=== PATIENT | male | born 1995 | race Hispanic/Latino ===

== ENCOUNTER 2016-07-04 17:46 | Emergency (ER) | payer OTHER ==
[~2016-07-04] VITALS: Ht 167.6 cm; Wt 85.1 kg
[2016-07-04 17:50] VITALS: BP 145/89; PULSE 107; RESP 16; O2SAT 96
--- NOTE | 2016-07-04 19:42 | ED.REPORT ---
HPI-URI / Cough / Cold Date of Service Jul 04, 2016 ED Provider: Tae Kevin DO A 21 year old male with no pertinent medical history presents to the ED complaining of a cough onset three days ago. This is accompanied by sore throat , pleuritic pain, and body aches. The cough is productive with yellow and green sputum, though he noticed bloody sputum once. The pt has been exposed to others with "cold-like symptoms" but denies exposure to TB. He also denies recent long car rides or other risk factors for clot. Nursing Notes Stated Complaint: COUGH,SNEEZING,CHEST PAIN Chief Complaint: FLU/Cold Symptoms Nursing Notes Reviewed: Yes Allergies: Coded Allergies: No Known Allergies (Unverified Allergy, Unknown, 07/12/14) General Time Seen by MD: 19:41 Chief Complaint Cough, productive... (Yellow) Hx Obtained From: Patient Arrived By: Walk-in Onset Occurred: 3 days ago Symptom Duration: Since onset Recent Healthcare: No recent doctor visit, No recent hospitalization Similar Sx Previous: No Past Medical History Past Medical History healthy Past Surgical History wisdom teeth removed. Smoking History Never Smoker Social History Alcohol Use: "Social" Drug Use: Denies drug use Other Social History: Good social support Ambulatory Status Independent Review of Systems Ears / Nose / Throat: Reports: Sore throat Respiratory: Reports: Pleuritic pain, Prod cough, bloody, Prod cough, green, Prod cough, yellow GI: Denies: Abdominal pain, Nausea, Vomiting Skin: Denies Rash Complete sys rev & neg: except as marked. Musculoskeletal: Reports: Myalgia Physical Exam Initial Vital Signs Vital Signs (First) Date Time Temp Pulse Resp B/P Pulse Ox O2 Delivery O2 Flow Rate FiO2 07/04/16 17:50 37 107 16 145/89 96 Room Air Initial VS: Reviewed General/Constitutional: Awake, Alert ENT: Atraumatic, Airway patent, Mucous membranes moist Respiratory / Chest: Atraumatic, Breath sounds = bilat, No respiratory distress rhonchi in left lower chest Head / Eyes: Atraumatic, Normocephalic, PERRL, EOMI Neck: Atraumatic, Supple, Full range of motion Cardiovascular: Heart rate NL, Regular rhythm, Heart sounds NL Abdomen: Atraumatic, Soft, Non-tender Skin: Atraumatic, Color NL, No rash, Warm, Dry Neurologic: Oriented X3, Speech NL, No motor deficits, No sensory deficits Back: Atraumatic, Full range of motion Upper Extremity / MS: Atraumatic, Full range of motion Lower Extremity / Pelvis / MS: Atraumatic, Full range of motion Psychiatric: Affect NL, Mood NL Interpretation & Diagnostics Lab Results Interpretation Result Diagram: 07/04/168 Test 07/04/16 22:08 D-Dimer < 0.5mg/L (<0.50) Sodium Level 140mEq/L (134-144) Potassium Level 4.4mEq/L (3.5-5.2) Chloride Level 102mEq/L (97-108) Carbon Dioxide Level 26mmol/L (18-29) Blood Urea Nitrogen 15mg/dL (6-20) Creatinine 0.87mg/dL (0.76-1.27) Estimat Glomerular Filtration Rate 117mL/min (>59) Glucose Level 109mg/dL (60-99) Calcium Level 9.3mg/dL (8.5-10.1) Pulse Oximetry Interpretation Pulse Oximetry Interpretation: 96% on room air Pulse Oximetry: Pulse Ox normal Pulse Oximetry Interpretation: 96% on room air Pulse Oximetry: Pulse Ox normal X-Ray Chest Interpretation Chest Xray Interpretation: IMPRESSION: Normal for age. Source of cough is not seen. Dictated by: Rodolfo Guerra M.D. on 07/04/2016 at 20:56 Approved by: Rodolfo Guerra M.D. on 07/04/2016 at 20:56 Interpretation / Wet Read by: Interpret - Radiologist Re-Eval/Medical Decision Med Decision/Clinical Course URI with sputum production. Negative d-dimer and no PE risk factors. Pulmonary emboli highly unlikely. Influenza A is being treated at [facility] and he certainly has evidence of influenza a clinically. He is also producing sputum that is purulent in nature. I will place him on Doxy and Tamiflu. Short course of prednisone. Close outpatient follow-up recommended. Source of Hx: Old records Counseled Regarding: Diagnosis, Lab results, Need for follow-up, When/why to return to ED Discharge & Departure Impression: Primary Impression: Bronchitis Disposition: Home Discharge Condition All VS Reviewed: Yes Condition: Stable Patient Instructions: Acute Bronchitis (ED) Additional Instructions: Your lab work was reassuring. Take Doxycycline twice daily for 5 days. Take Tamiflu twice daily for 5 days. Take Prednisone daily for 3 days. Follow up with your primary care physician this week for further evaluation. Return to the emergency department if you develop any new or worsening symptoms. Referrals: [facility] [employer] Portions of this note were transcribed by Nahomi Govea I, Dr. Kevin personally performed the history, physical exam and medical decision-making; I reviewed and confirmed the accuracy of the information in the transcribed note. Signed by: Sony Ballard, 07/04/16 and 21:11. copies to: [facility] Tae Kevin DO Jul 04, 2016 19:42 NAHOMI GOVEA Jul 04, 2016 21:11
[2016-07-04] MEDS ORDERED: _Albuterol-HFA 60 Puff Inhaler INHALATION PRN (20:45)
[2016-07-04] MEDS ORDERED: predniSONE 20 mg Tablet PO ONE (20:45)
[2016-07-04 20:54] VITALS: BP 132/84; PULSE 90; RESP 16; O2SAT 96
--- NOTE | 2016-07-04 20:58 | DRSVH ---
PROCEDURE: X-RAY CHEST, TWO VIEWS ([id number]) INDICATIONS: cough TECHNIQUE: 2 views of the chest were acquired. COMPARISON: None. FINDINGS: Surgical changes and devices: None. Lungs and pleura: No pleural effusions or pneumothorax. Lungs are clear. Mediastinum: Mediastinal contours are normal. Heart size is normal. Bones and chest wall: No suspicious bony abnormalities. Soft tissues appear unremarkable. IMPRESSION: Normal for age. Source of cough is not seen. Dictated by: Rdoolfo Guerra M.D. on 07/04/2016 at 20:56 Approved by: Rodolfo Guerra M.D. on 07/04/2016 at 20:56
[2016-07-04 23:07] VITALS: BP 132/84; PULSE 90; RESP 16; O2SAT 96
== END 2016-07-04 23:08 | disposition home or self-care (01) ==
LOC: SED 17:46
DX: J40 Bronchitis, not specified as acute or chronic (principal); J02.9 Acute pharyngitis, unspecified; R07.81 Pleurodynia